=== PATIENT | female | born 1995 | race Caucasian/White ===

== ENCOUNTER 2019-11-01 12:02 | Emergency (ER) | payer BC, MEDICAID ==
[2019-11-01 12:20] VITALS: BP 139/66; PULSE 100
[2019-11-01] MEDS ORDERED: LORazepam 0.5 MG Tab PO ONE (12:20)
[2019-11-01 12:47] LABS: CHLORIDE,CL 108 mEq/L (98-106); SODIUM,NA 144 mEq/L (136-145)
--- NOTE | 2019-11-01 13:11 | EDM.PDOC ---
ED HPI GENERAL MEDICAL PROBLEM - General Chief Complaint: General Stated Complaint: panic attack Time Seen by Provider: 11/01/19 12:20 Source of Information: Reports: Patient, EMS History Limitations: Reports: No Limitations - History of Present Illness INITIAL COMMENTS - FREE TEXT/NARRATIVE: Rina is a 24 yo female who presents to the ED with c/o "panic attack." She reports approximately 1 hr prior to arrival she found out she owed extensive amount of child support as well as had a positive test. She reports this caused her to "have a panic attack." She is brought in by [facility]. She reports prior to this she was feeling fine. Reports she has some numbness and tingling in her extremities, as well as chest pain, shortness of breath, and abdominal pain. She denies any fever, chills, diarrhea, urinary symptoms. Takes vistaril and Xanax for anxiety. Has history of anxiety since she was 7. 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 Onset: Today, Sudden Duration: Improving Location: Reports: Generalized Left Upper Chest Pain Score (Numeric/FACES): 5 - Related Data Allergies Allergy/AdvReac Type Severity Reaction Status Date / Time No Known Drug Allergies Allergy Other Verified 11/01/19 12:22 Home Meds: Home Meds ALPRAZolam [Xanax] 1 mg PO QID 06/23/18 [History] ALPRAZolam [Xanax] 0.5 mg PO BIDMEALS 11/01/19 [History] Ferrous Sulfate [Iron] 325 mg PO BID 11/01/19 [History] Loratadine [Claritin] 10 mg PO DAILY 11/01/19 [History] Melatonin 5 mg PO BEDTIME PRN 11/01/19 [History] Past Medical History - Past Health History Medical/Surgical History: Denies Medical/Surgical History HEENT History: Reports: Impaired Vision, Sinusitis, Other (See Below) Other HEENT History: Currently has pink eye and is on Respiratory History: Reports: Bronchitis, Recurrent, Pneumonia, Recurrent Gastrointestinal History: Reports: Chronic Constipation Genitourinary History: Reports: UTI, Recurrent, Other (See Below) Other Genitourinary History: uti's on occasion [employer] History: Reports: , Spontaneous Other MET[employer]OLIT[employer] EDITOR History: 8 . 3 live births. 5 micarriages Psychiatric History: Reports: Anxiety, Depression, Emotional Problems, PTSD, Suicide Attempt, Suicidal Ideation Immunologic History: Reports: None - Past Surgical History GI Surgical History: Reports: None Female Surgical History: Reports: None Musculoskeletal Surgical History: Reports: None Social & Family History - Tobacco Use Smoking Status *Q: Current Every Day Smoker Years of Tobacco use: 14 Packs/Tins Daily: 1 - Caffeine Use Caffeine Use: Reports: None - Recreational Drug Use Recreational Drug Use: Yes Drug Use in Last 12 Months: Yes Recreational Drug Type: Reports: Methamphetamine Other Recreational Drug Type: Has not used since july 2019 Recreational Drug Use Frequency: Monthly ED ROS GENERAL - Review of Systems Review Of Systems: Comprehensive ROS is negative, except as noted in HPI. ED EXAM, GENERAL - Physical Exam Exam: See Below Exam Limited By: No Limitations General Appearance: Alert, WD/WN, No Apparent Distress, Anxious Eye Exam: Bilateral Eye: EOMI, Normal Fundi, Normal Inspection, PERRL Throat/Mouth: Normal Inspection, Normal Lips, Normal Teeth, Normal Gums, Normal Oropharynx, Normal Voice, No Airway Compromise Head: Atraumatic, Normocephalic Neck: Normal Inspection, Supple, Non-Tender, Full Range of Motion Respiratory/Chest: No Respiratory Distress, Lungs Clear, Normal Breath Sounds, No Accessory Muscle Use, Chest Non-Tender Cardiovascular: Normal Peripheral Pulses, Regular Rate, Rhythm, No Edema, No Gallop, No JVD, No Murmur, No Rub GI/Abdominal: Normal Bowel Sounds, Soft, No Organomegaly, No Distention, No Abnormal Bruit, No Mass, Tender (throughout) Extremities: Normal Inspection, Normal Range of Motion, Non-Tender, Normal Capillary Refill, No Pedal Edema Neurological: Alert, Oriented, CN II-XII Intact, Normal Cognition, Normal Gait, Normal Reflexes, No Motor/Sensory Deficits, Other (tremors BUE) Psychiatric: Anxious Skin Exam: Warm, Dry, Intact, Normal Color, No Rash Course - Vital Signs Last Recorded V/S: Last Vital Signs Temp 95.5 F L 11/01/19 12:15 Pulse 100 11/01/19 12:15 Resp 30 H 11/01/19 12:15 BP 139/66 11/01/19 12:15 Pulse Ox - Orders/Labs/Meds Labs: Laboratory Tests 11/01/19 11/01/19 11/01/19 Range/Units 12:13 12:13 12:30 WBC 5.4 (5.0-10.0) 10^3/uL RBC 5.31 (4.00-5.50) 10^6/uL Hgb 13.0 (12.0-16.0) g/dL Hct 39.9 (37.0-47.0) % MCV 75.1 L (82.0-94.0) fL MCH 24.5 L (27.0-32.0) pg MCHC 32.6 L (33.0-38.0) g/dL RDW Coeff of Shirley 21.2 H (11.0-15.0) % Plt Count 231 (150-400) 10^3/uL Neut % (Auto) 50.9 (35-85) % Lymph % (Auto) 37.2 (10-55) % [place] % (Auto) 6.5 (0-16) % Eos % (Auto) 5.0 (0-5) % Baso % (Auto) 0.4 (0-3) % Neut # (Auto) 2.72 (1.80-7.00) 10^3/uL Lymph # (Auto) 1.99 (1.00-4.80) 10^3/uL [place] # (Auto) 0.35 (0.00-0.80) 10^3/uL Eos # (Auto) 0.27 (0.00-0.45) 10^3/uL Baso # (Auto) 0.02 10^3/uL Sodium (136-145) mEq/L Potassium (3.5-5.0) mEq/L Chloride (98-106) mEq/L Carbon Dioxide (21-32) mmol/L BUN (7-18) mg/dL Creatinine (0.6-1.0) mg/dL Est Cr Clr Drug Dosing mL/min Estimated GFR (MDRD) (>=60) mL/min Glucose (75-99) mg/dL Calcium (8.4-10.1) mg/dL Total Bilirubin (0.0-1.0) mg/dL AST (15-37) U/L ALT (12-78) U/L Alkaline Phosphatase (46-116) U/L C-Reactive Protein (0.2-0.8) mg/dL Total Protein (6.4-8.2) g/dL Albumin (3.4-5.0) g/dL Urine HCG, Qual Negative Urine Opiates Screen Negative (NEGATIVE) Ur Oxycodone Screen Negative (NEGATIVE) Urine Methadone Screen Negative (NEGATIVE) Ur Barbiturates Screen Negative (NEGATIVE) U Tricyclic Antidepress Negative (NEGATIVE) Ur Phencyclidine Scrn Negative (NEGATIVE) Ur Amphetamine Screen Negative (NEGATIVE) U Methamphetamines Scrn Negative (NEGATIVE) Urine MDMA Screen Negative (NEGATIVE) U Benzodiazepines Scrn Positive H (NEGATIVE) Urine Cocaine Screen Negative (NEGATIVE) U Marijuana (THC) Screen Negative (NEGATIVE) 11/01/19 Range/Units 12:30 WBC (5.0-10.0) 10^3/uL RBC (4.00-5.50) 10^6/uL Hgb (12.0-16.0) g/dL Hct (37.0-47.0) % MCV (82.0-94.0) fL MCH (27.0-32.0) pg MCHC (33.0-38.0) g/dL RDW Coeff of Shirley (11.0-15.0) % Plt Count (150-400) 10^3/uL Neut % (Auto) (35-85) % Lymph % (Auto) (10-55) % [place] % (Auto) (0-16) % Eos % (Auto) (0-5) % Baso % (Auto) (0-3) % Neut # (Auto) (1.80-7.00) 10^3/uL Lymph # (Auto) (1.00-4.80) 10^3/uL [place] # (Auto) (0.00-0.80) 10^3/uL Eos # (Auto) (0.00-0.45) 10^3/uL Baso # (Auto) 10^3/uL Sodium 144 (136-145) mEq/L Potassium 3.4 L (3.5-5.0) mEq/L Chloride 108 H (98-106) mEq/L Carbon Dioxide 24 (21-32) mmol/L BUN 11 (7-18) mg/dL Creatinine 0.9 (0.6-1.0) mg/dL Est Cr Clr Drug Dosing 111.23 mL/min Estimated GFR (MDRD) > 60 (>=60) mL/min Glucose 100 H (75-99) mg/dL Calcium 9.7 (8.4-10.1) mg/dL Total Bilirubin 0.4 (0.0-1.0) mg/dL AST 11 L (15-37) U/L ALT 21 (12-78) U/L Alkaline Phosphatase 44 L (46-116) U/L C-Reactive Protein < 0.2 L (0.2-0.8) mg/dL Total Protein 7.5 (6.4-8.2) g/dL Albumin 3.8 (3.4-5.0) g/dL Urine HCG, Qual Urine Opiates Screen (NEGATIVE) Ur Oxycodone Screen (NEGATIVE) Urine Methadone Screen (NEGATIVE) Ur Barbiturates Screen (NEGATIVE) U Tricyclic Antidepress (NEGATIVE) Ur Phencyclidine Scrn (NEGATIVE) Ur Amphetamine Screen (NEGATIVE) U Methamphetamines Scrn (NEGATIVE) Urine MDMA Screen (NEGATIVE) U Benzodiazepines Scrn (NEGATIVE) Urine Cocaine Screen (NEGATIVE) U Marijuana (THC) Screen (NEGATIVE) Meds: Medications Discontinued Medications Generic Name Dose Route Start Last Admin Trade Name Freq PRN Reason Stop Dose Admin Lorazepam 1 mg 11/01/19 12:20 11/01/19 13:10 Ativan PO 11/01/19 12:21 1 mg ONETIME ONE Administration - Re-Assessments/Exams Free Text/Narrative Re-Assessment/Exam: Labs all normal. test negative. This was discussed with patient. She was given 1 mg lorazepam. Reports she is feeling better. Agreeable to discharge. Departure - Departure Time of Disposition: 13:10 Disposition: Home, Self-Care 01 Condition: Good Clinical Impression: Panic attack as reaction to stress, Anxiety - Discharge Information *PRESCRIPTION DRUG MONITORING PROGRAM REVIEWED*: Yes *COPY OF PRESCRIPTION DRUG MONITORING REPORT IN PATIENT VALERY: Yes Instructions: Panic Attack, [id number] Forms: ED Department Discharge Additional Instructions: - Continue to use Xanax as needed for panic symptoms - Lab work all looks good - test is negative - Follow up with PCP for recheck if symptoms worsen or do not improve Sepsis Event Note (ED) - Evaluation Sepsis Screening Result: No Definite Risk - Focused Exam Vital Signs: Vital Signs Temp Pulse Resp BP 11/01/19 12:15 95.5 F L 100 30 H 139/66 - Problem List & Annotations (1) Anxiety SNOMED Code(s): 79151612 Code(s): F41.9 - ANXIETY DISORDER, UNSPECIFIED Status: Chronic (2) Panic attack as reaction to stress SNOMED Code(s): 946420337 Code(s): F41.0 - PANIC DISORDER [EPISODIC PAROXYSMAL ANXIETY]; F43.0 - ACUTE STRESS REACTION Status: Acute - Assessment/Plan Assessment:: Anxiety Panic attack due to stress Plan: Patient was given 1 mg lorazepam while in ED. Symptoms did improve prior to this. Patient reported she was feeling better. Discussed normal lab findings with patient, including negative HCG. She verbalized understanding and was agreeable to discharge. Patient discharged home in satisfactory condition.
== END 2019-11-01 13:17 | disposition home or self-care (01) ==
LOC: CC.ED 12:02
DX: F41.0 Panic disorder [episodic paroxysmal anxiety] (principal); F43.9 Reaction to severe stress, unspecified; F17.210 Nicotine dependence, cigarettes, uncomplicated; Z79.899 Other long term (current) drug therapy
CPT/HCPCS: 36415; 80053; 80305; 81025; 85025; 86140; 99283; A9270